=== PATIENT | female | born 1955 | race Caucasian/White ===

== ENCOUNTER 2017-04-08 07:33 | Day surgery (SDC) | payer OTHER ==
[2017-04-08] MEDS ORDERED: FENTAnyl 50 MCG/ML VIAL (09:38)
[2017-04-08] MEDS ORDERED: MIDAZOLAM 1 MG/ML 2 ML INJ ×2 (09:38)
== END 2017-04-08 10:57 | disposition home or self-care (01) ==
LOC: GIL 07:33
DX: Z12.11 Encounter for screening for malignant neoplasm of colon (principal); K57.90 Diverticulosis of intestine, part unspecified, without perforation or abscess without bleeding; K64.4 Residual hemorrhoidal skin tags; K64.8 Other hemorrhoids; D12.2 Benign neoplasm of ascending colon; I10 Essential (primary) hypertension
CPT/HCPCS: 45380; 88305

== ENCOUNTER 2017-04-30 14:10 | Emergency (ER) | payer OTHER | END 2017-04-30 15:00 | disposition home or self-care (01) | LOC: FTE 14:10 → E/R 15:00 | DX: H92.02 Otalgia, left ear (principal); I10 Essential (primary) hypertension | CPT/HCPCS: 99283; Z7502 ==